=== PATIENT | male | born 1970 | race Caucasian/White ===

== ENCOUNTER 2025-02-28 15:00 | Emergency (ER) | payer SELFPAY ==
[2025-02-28 15:03] VITALS: BP 149/98
--- NOTE | 2025-02-28 15:14 | EDRN ---
Splint applied to right wrist while in triage and instant ice pack applied on top of splint. Patient directly to xray via Wheelchair.
--- NOTE | 2025-02-28 16:54 | ED.GENMED ---
History of Present Illness
General
Chief Complaint: Musculo-Skeletal Complaint
Source: patient
Time Seen by Provider: 02/28/25 16:28
History of Present Illness
History of Present Illness:
55-year-old male presents to the emergency room for evaluation of right wrist injury. Patient states he was getting off the back of his truck when he fell and landed on an outstretched right arm. Patient is right-hand dominant. He has significant
pain and observed deformity of his right wrist. Injury happened just prior to coming to the emergency room. Did not take any medication for pain.
Phy Exam
Physical Exam
Physical Exam:
General: Awake, Alert, Oriented X3. No acute distress.
Vitals: unremarkable
Head: Atraumatic
Eyes: Pupils equal, EOMI
Throat: Airway intact, no exudates
Neck: Trachea midline
Neuro: Nonfocal
Skin: Warm, dry, no rash
Extremities: Obvious swelling and deformity right wrist. Sensation intact. Capillary refill intact
Course
Orders/Labs/Results
Orders:
Orders
02/28/25 15:10
CR Wrist - Right Min 3 Views Urgent
Comment:
Reason For Exam: fall, defomity, pain
02/28/25 16:54
Ibuprofen [Motrin] 600 mg PO NOW STA
Oxycodone [Roxicodone] 5 mg PO NOW STA
02/28/25 17:50
CR Wrist - Right Min 3 Views Urgent
Comment:
Reason For Exam: post reduction
Vital Signs
Initial and Last Documented VS:
Initial Vital Signs
Temp Pulse Resp BP Pulse Ox
98.6 F 94 18 149/98 95
02/28/25 15:03 02/28/25 15:03 02/28/25 15:03 02/28/25 15:03 02/28/25 15:03
Last Documented Vital Signs
Temp Pulse Resp BP Pulse Ox
98.6 F 90 18 119/69 95
02/28/25 15:03 02/28/25 19:05 02/28/25 15:03 02/28/25 19:05 02/28/25 16:54
Procedures
Joint/Fracture Reduction
Right Wrist:
Indication for procedure:: Displaced fracture
Procedure completed by: Ed Ranjeet
Consent form signed: No
If no, reason: Emergency procedure
Joint reduced: without anesthesia
Anesthesia/sedation: Other (Hematoma block)
Injury was: closed
Further treatement: needs further treatment (Close Ortho follow-up)
Post reduction exam: stable
Capillary Refill: normal
Normal distal neurovascular exam?: Yes
Peripheral Pulses: radial (right): 4+
MDM/Problems Addressed
Differential Diagnosis Includes:
Distal radius fracture, wrist dislocation, ulnar fracture
MDM/Problems Addressed:
Imaging shows a significant distal radius fracture. Fracture was reduced somewhat and splinted by Ed
*Radiology
Radiology exam reviewed: preliminary read by ED provider (Comminuted distal radius fracture)
*Pulse Oximetry
SaO2: 95
Oxygen Mode of Delivery: Room air
Patient hypoxic: no
*Critical Care Note
Total Time (30-74mins, 75-104mins- exclusive of procedures): Not Applicable
ED Attending Note
-
Portions of this chart may have been created with voice recognition software.� Occasional wrong word or��sound alike� substitutions may have occurred due to the inherent limitations of voice recognition software.
Discharge Plan
Departure
Patient Disposition: Home (Routine Discharge)
Date of Disposition: 02/28/25
Time of Disposition: 18:53
Patient with high blood pressure during this ER visit?: No
Condition: Good
Discharge Problem:
Right wrist fracture
Instructions: Wrist Fracture (DC)
Prescriptions:
New
oxycodone 5 mg tablet
5 mg PO Q6H PRN (Reason: Pain) Qty: 12 0RF
Referrals:
Khris Bella MD [Active, Orthopedics]
UNKNOWN - PT DOES,NOT KNOW [Family Provider]
Interventions
Interventions:
*Risk Screen - Suicide Last Done: 02/28/25 15:03
*General Assessment Last Done: 02/28/25 17:03
*Neglect/Abuse Screening Last Done: 02/28/25 17:03
*ED- Fall Risk Assessment Last Done: 02/28/25 17:03
*ED COVID-19 Vaccine History Last Done: 02/28/25 17:03
*Nursing Disposition Last Done: 02/28/25 19:05
ED-Musculoskeletal Assessment Last Done: 02/28/25 17:05
Discharge Date and Time
Discharge Date/Time: 02/28/25 19:11
Print Language: FRISIAN
[2025-02-28] MEDS: MOTRIN 600 MG PO (17:00)
[2025-02-28] MEDS: ROXICODONE 5 MG PO (17:00)
[2025-02-28 17:03] VITALS: BMI 39.9
[2025-02-28 19:05] VITALS: BP 119/69
== END 2025-02-28 19:11 | disposition home or self-care (01) ==
LOC: EMR 15:00
PROVIDERS: EMERGENCY PHYSICIAN Emergency Medicine
DX: S52.571A Other intraarticular fracture of lower end of right radius, initial encounter for closed fracture (principal); S52.611A Displaced fracture of right ulna styloid process, initial encounter for closed fracture; W17.89XA Other fall from one level to another, initial encounter
CPT/HCPCS: 25605; 99283; 73110